=== PATIENT | female | born 1935 | race Caucasian/White ===

== ENCOUNTER 2017-08-30 15:37 | Emergency (ER) | payer OTHER ==
[~2017-08-30] VITALS: Ht 149.9 cm; Wt 65.8 kg
[2017-08-30] MEDS ORDERED: CADUET 10 MG-41 EACH PO (16:02)
[2017-08-30] MEDS ORDERED: RANITIDINE HCL150 M1 PO (16:03)
[2017-08-30] MEDS ORDERED: AMLODIPINE-ATO1 EAC6 PO (16:03)
[2017-08-30] MEDS ORDERED: [UNRECOGNIZED DRUG - OTHER] PO (16:04)
[2017-08-30] MEDS ORDERED: GABAPENTIN300 MG PO (16:04)
[2017-08-30] MEDS ORDERED: COZAAR100 MG PO (16:04)
== END 2017-08-30 20:39 | disposition home or self-care (01) ==
LOC: ER 15:37
DX: K29.60 Other gastritis without bleeding (principal); R42 Dizziness and giddiness